=== PATIENT | female | born 1965 | race Caucasian/White ===

== ENCOUNTER 2018-08-15 14:05 | Emergency (ER) | payer SELFPAY ==
[~2018-08-15] VITALS: Ht 162.6 cm; Wt 75.9 kg
[2018-08-15 14:09] VITALS: Ht 162.6 cm; Wt 75.9 kg
[2018-08-15] MEDS ORDERED: LEVOXYL100 MCG PO (14:11)
[2018-08-15] MEDS ORDERED: SOMA350 MG PO (14:11)
[2018-08-15] MEDS ORDERED: ZOLOFT50 MG PO (14:11)
[2018-08-15] MEDS ORDERED: ESTRACE 0.5 MG0.5 MG PO (14:12)
[2018-08-15] MEDS ORDERED: PROVERA2.5 MG PO (14:12)
[2018-08-15] MEDS ORDERED: ULTRAM50 MG PO (14:13)
[2018-08-15] MEDS ORDERED: CRESTOR40 MG PO (14:13)
[2018-08-15 15:35] LABS: BASOPHILS 0.3 % (0-2); EOSINOPHILS 1.4 % (0-7); HEMATOCRIT 36.5 % (36.0-48.0); HEMOGLOBIN 12.2 g/dL (12-16); IMMATURE GRANULOCYTES 0.2 % (0-5); LYMPHOCYTES 25.9 % (15-50); MCH 30.1 pg (26.0-34.0); MCHC 33.4 g/dL (31.0-37.0); MCV 90.1 fL (80.0-100.0); MEAN PLATELET VOLUME 8.3 fL (7.4-10.4); MONOCYTES 7.9 % (2-11); NEUTROPHILS 64.3 % (40-80); PLATELET COUNT 300 10x3/uL (130-400); RBC 4.05 10x6/uL (4.00-5.40); WBC 8.7 10x3/uL (4.8-10.8)
[2018-08-15 15:43] LABS: APPEARANCE CLEAR (CLEAR); BILIRUBIN NEGATIVE (NEGATIVE); COLOR YELLOW (YELLOW); GLUCOSE NEGATIVE (NEGATIVE); KETONE NEGATIVE (NEGATIVE); NITRITE NEGATIVE (NEGATIVE); PROTEIN TRACE mg/dL (NEGATIVE); UROBILINOGEN NORMAL (NORMAL)
[2018-08-15 15:44] LABS: RED CELLS - URINE 0-5 /hpf (0-5); WHITE CELLS - URINE 0-5 /hpf (0-5)
[2018-08-15 15:45] LABS: AMORPHOUS SEDIMENT <1+ /lpf (NONE SEEN); BACTERIA FEW /hpf (NONE SEEN); EPITHELIAL CELLS 0-5 /hpf (0-5)
[2018-08-15 15:54] LABS: ALBUMIN 3.9 g/dL (3.4-5.0); ALKALINE PHOSPHATASE 60 U/L (46-116); ALT (SGPT) 36 U/L (10-68); BILIRUBIN - TOTAL 0.17 mg/dL (0.2-1.3); CALC OSMOLALITY 283 mosm/kg (275-300); CALCIUM 8.8 mg/dL (8.5-10.1); CARBON DIOXIDE 27.3 mmol/L (21.0-32.0); CHLORIDE - SERUM 104 mmol/L (98-107); CREATININE - SERUM 0.9 mg/dL (0.6-1.3); GLUCOSE 111 mg/dL (74-106); POTASSIUM - SERUM 3.8 mmol/L (3.5-5.1); PROTEIN - SERUM 7.6 g/dL (6.4-8.2); SODIUM 142 mmol/L (136-145); UREA NITROGEN 13 mg/dL (7-18); eGFR NON AFRICAN AMERICAN 69 mL/min (90-120)
[2018-08-15 16:06] LABS: CKMB 1.9 U/L (0.0-3.6); CREATINE KINASE 150 UL (21-215)
[2018-08-15 16:10] LABS: TROPONIN-I < 0.017 ng/mL (0.000-0.060)
[2018-08-15] MEDS ORDERED: TORADOL10 MG PO (17:13)
[2018-08-15 17:47] VITALS: BP 125/71
== END 2018-08-15 17:47 | disposition home or self-care (01) ==
LOC: D.ER 14:05
PROVIDERS: Emergency Medicine
DX: R07.89 Other chest pain (principal); I45.10 Unspecified right bundle-branch block

== ENCOUNTER → 2018-12-02 07:33 | Outpatient (CLI) | payer OTHER ==
[2018-08-15 14:09] VITALS: BMI 28.7
[~2018-12-02 07:33] MED LIST: CRESTOR40 MG PO; ESTRACE 0.5 MG0.5 MG PO; LEVOXYL100 MCG PO; PROVERA2.5 MG PO; SOMA350 MG PO; TORADOL10 MG PO; ULTRAM50 MG PO; ZOLOFT50 MG PO
== END | disposition home or self-care (01) ==
LOC: D.US 07:30
PROVIDERS: ATTEND Family Medicine
DX: R10.10 Upper abdominal pain, unspecified (principal)